=== PATIENT | male | born 1970 | race Caucasian/White ===

== ENCOUNTER → 2020-01-13 | Outpatient (CLI) | payer OTHER | LOC: LAB 16:18 | DX: Z00.00 Encounter for general adult medical examination without abnormal findings (principal); Z12.5 Encounter for screening for malignant neoplasm of prostate ==

== ENCOUNTER → 2021-01-26 | Outpatient (CLI) | payer OTHER ==
[~2021-01-26] MED LIST: AMBIEN10 MG PO; AMOXICILLIN AND1 TA2 PO; PHENTERMINE H37.5 M2 PO
[2021-01-26 11:44] LABS: EOS # 0.1 (0.04-0.40); HEMATOCRIT 45.1 % (42.0-52.0); HEMOGLOBIN 15.5 g/dL (13.5-18.0); LYMPH# 2.3 (1.50-4.00); MEAN CELL VOLUME 90 fl (78-100); MEAN CORPUSCULAR HEMOGLOBIN 31 pg (27-31); MEAN CORPUSCULAR HGB CONC 34 g/dL (33-37); MEAN PLATELET VOLUME 9.2 fl (7.4-10.4); MONO # 0.5 (0.20-0.80); PLATELET COUNT 245 K/mm3 (130-400); RED BLOOD COUNT 5.02 M/mm3 (4.20-5.60); RED CELL DISTRIBUTION WIDTH 12.6 % (11.5-14.5); WHITE BLOOD COUNT 5.8 K/mm3 (4.8-10.8)
[2021-01-26 11:54] LABS: POTASSIUM 4.2 mmol/L (3.5-5.1)
[2021-01-26 11:55] LABS: ALBUMIN 4.3 g/dL (3.5-5.0)
[2021-01-26 11:56] LABS: CALCIUM 9.1 mg/dL (8.3-10.5)
[2021-01-26 11:57] LABS: TOTAL PROTEIN 7.4 g/dL (6.4-8.3)
[2021-01-26 11:59] LABS: TOTAL BILIRUBIN 1.2 mg/dL (0.2-1.2)
== END ==
LOC: LAB 11:11
PROVIDERS: Physician Assistant
DX: Z00.00 Encounter for general adult medical examination without abnormal findings (principal); Z12.5 Encounter for screening for malignant neoplasm of prostate; Z20.9 Contact with and (suspected) exposure to unspecified communicable disease; R15.2 Fecal urgency

== ENCOUNTER 2021-03-25 20:28 | Emergency (ER) | payer OTHER ==
[2021-03-25] MEDS ORDERED: AMBIEN10 MG PO (20:37)
[2021-03-25] MEDS ORDERED: PHENTERMINE H37.5 M2 PO (20:38)
[2021-03-25] MEDS ORDERED: AMOXICILLIN AND1 TA2 PO (21:54)
[2021-03-25 22:01] VITALS: BP 133/104
== END 2021-03-25 22:01 | disposition home or self-care (01) ==
LOC: ED 20:28
DX: S51.852A Open bite of left forearm, initial encounter (principal); S51.851A Open bite of right forearm, initial encounter; F17.210 Nicotine dependence, cigarettes, uncomplicated; W54.0XXA Bitten by dog, initial encounter; Y92.009 Unspecified place in unspecified non-institutional (private) residence as the place of occurrence of the external cause
CPT/HCPCS: J1885

== ENCOUNTER → 2021-04-18 | Outpatient (CLI) | payer OTHER ==
[2021-03-25 22:01] VITALS: BP 133/104
== END ==
LOC: RAD 08:12
DX: M19.011 Primary osteoarthritis, right shoulder (principal); M25.512 Pain in left shoulder

== ENCOUNTER → 2021-10-04 | Outpatient (CLI) | payer OTHER ==
[2021-10-04 09:30] LABS: BASO # 0.05 K/mm3 (0.02-0.10); EOS # 0.08 K/mm3 (0.04-0.40); EOS % 1.3 % (0.0-4.0); HEMATOCRIT 46.9 % (42.0-52.0); HEMOGLOBIN 16.3 g/dL (13.5-18.0); LYMPH# 2.52 K/mm3 (1.50-4.00); MEAN CELL VOLUME 92 fl (78-100); MEAN CORPUSCULAR HEMOGLOBIN 32 pg (27-31); MEAN CORPUSCULAR HGB CONC 35 g/dL (33-37); MEAN PLATELET VOLUME 8.7 fl (7.4-10.4); MONO # 0.43 K/mm3 (0.20-0.80); NEU # 3.01 K/mm3 (1.40-6.50); PLATELET COUNT 220 K/mm3 (130-400); RED BLOOD COUNT 5.11 M/mm3 (4.20-5.60); RED CELL DISTRIBUTION WIDTH 11.8 % (11.5-14.5); WHITE BLOOD COUNT 6.1 K/mm3 (4.8-10.8)
[2021-10-04 09:50] LABS: ALBUMIN 4.2 g/dL (3.5-5.0); POTASSIUM 4.3 mmol/L (3.5-5.1)
[2021-10-04 09:51] LABS: CALCIUM 9.2 mg/dL (8.3-10.5)
[2021-10-04 09:53] LABS: TOTAL PROTEIN 7.3 g/dL (6.4-8.3)
[2021-10-04 09:54] LABS: TOTAL BILIRUBIN 1.4 mg/dL (0.2-1.2)
[2021-10-04 23:42] LABS: TESTOSTERONE 527 ng/dL (221-716)
[2021-10-05 01:11] LABS: HEPATITIS C ANTIBODY Reactive (Negative)
== END ==
LOC: LAB 09:14
PROVIDERS: Physician Assistant
DX: Z13.29 Encounter for screening for other suspected endocrine disorder (principal); Z11.59 Encounter for screening for other viral diseases; I10 Essential (primary) hypertension; J30.2 Other seasonal allergic rhinitis; F52.21 Male erectile disorder; E78.5 Hyperlipidemia, unspecified; R63.5 Abnormal weight gain

== ENCOUNTER 2023-03-10 09:45 | Emergency (ER) | payer BC ==
[~2023-03-10] VITALS: Ht 185.4 cm; Wt 95.5 kg
[2023-03-10] MEDS ORDERED: ZYRTEC10 M3 PO (10:51)
[2023-03-10 12:01] VITALS: BP 129/105
== END 2023-03-10 12:06 | disposition home or self-care (01) ==
LOC: ED 09:45
DX: S00.11XA Contusion of right eyelid and periocular area, initial encounter (principal); S00.81XA Abrasion of other part of head, initial encounter; M25.512 Pain in left shoulder; Z98.890 Other specified postprocedural states; Z28.310 Unvaccinated for COVID-19; W01.0XXA Fall on same level from slipping, tripping and stumbling without subsequent striking against object, initial encounter; Y93.01 Activity, walking, marching and hiking

== ENCOUNTER 2024-08-09 12:22 | Emergency (ER) | payer OTHER ==
[~2024-08-09] VITALS: Ht 185.4 cm; Wt 104.5 kg
[~2024-08-09 12:22] MED LIST changes: +ZYRTEC10 M3 PO
[2024-08-09] MEDS ORDERED: AMOXICILLIN AND1 TA2 PO (12:52)
[2024-08-09] MEDS ORDERED: NORCO 325 MG-51 TA1 PO (12:52)
[2024-08-09] MEDS ORDERED: ALLERGY RELIEF10 M2 PO (12:52)
[2024-08-09] MEDS ORDERED: FLUTICASONE P15.8 ML NS (12:52)
[2024-08-09] MEDS ORDERED: LISINOPRIL10 MG PO (13:04)
[2024-08-09] MEDS ORDERED: NORVASC 10MG10 MG PO (13:04)
[2024-08-09] MEDS ORDERED: LIPITOR 10M10 MG/TAB PO (13:05)
[2024-08-09 13:08] VITALS: BP 123/95
== END 2024-08-09 13:08 | disposition home or self-care (01) ==
LOC: ED 12:22
DX: J32.9 Chronic sinusitis, unspecified (principal); K08.89 Other specified disorders of teeth and supporting structures